=== PATIENT | male | born 1985 | race Caucasian/White ===

== ENCOUNTER 2016-12-03 19:02 | Emergency (ER) | payer OTHER ==
--- NOTE | 2016-12-03 21:02 | ED ---
Upper Extremity HPI - General Chief Complaint: Extremity Injury, Upper Stated Complaint: left shoulder pain Time Seen by Provider: 12/03/16 20:06 Source: patient, RN notes reviewed Mode of arrival: ambulatory Limitations: no limitations - History of Present Illness Initial Comments: 31-year-old male presents emergency Department chief complaint left shoulder pain. Patient states she's had increasing pain last 2 days with no major injury. He states it just feels like he needs a pop and sore. He states when he lifts it above 90 he starts to feel some pinching sensation. Patient's had no prior injuries. Does do large amount lifting with his job. Patient denies a paresthesias. Patient offers no other complaints. - Related Data Previous Rx's Medication Instructions Recorded Hydrocodone/Acetaminophen [[place] 1 tab PO Q6HR PRN #20 tab 12/03/16 5-325] methylPREDNISolone [Medrol Dose 4 mg PO DIRECTED #1 pack 12/03/16 Pack] Allergies Allergy/AdvReac Type Severity Reaction Status Date / Time iodine Allergy Unknown Verified 12/03/16 19:40 Review of Systems ROS Statement: Those systems with pertinent positive or pertinent negative responses have been documented in the HPI. ROS Other: All systems not noted in ROS Statement are negative. Past Medical History Past Medical History: No Reported History History of Any Multi-Drug Resistant Organisms: None Reported Past Surgical History: Tonsillectomy Additional Past Surgical History / Comment(s): vasectomy Past Psychological History: Anxiety, Depression, PTSD Smoking Status: Former smoker Past Alcohol Use History: Occasional Past Drug Use History: None Reported General Exam Limitations: no limitations General appearance: alert, in no apparent distress Head exam: Present: atraumatic, normocephalic, normal inspection Eye exam: Present: normal appearance, PERRL, EOMI. Absent: scleral icterus, conjunctival injection, periorbital swelling Neck exam: Present: normal inspection, full ROM. Absent: tenderness Respiratory exam: Present: normal lung sounds bilaterally. Absent: respiratory distress, wheezes, rales, rhonchi, stridor Cardiovascular Exam: Present: regular rate, normal rhythm, normal heart sounds. 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 There is no acute fracture I received an x-ray. Patient has impingement syndrome. Patient will try a course of steroids and pain medication. Patient will follow on-call orthopedics Dr. Doe. Disposition Clinical Impression: Impingement syndrome of left shoulder Disposition: HOME SELF-CARE Condition: Stable Instructions: Shoulder Pain (ED) Additional Instructions: Please return to the Emergency Department if symptoms worsen or any other concerns. Prescriptions: Hydrocodone/Acetaminophen [[place] 5-325] 1 tab PO Q6HR PRN #20 tab PRN Reason: Pain methylPREDNISolone [Medrol Dose Pack] 4 mg PO DIRECTED #1 pack Referrals: Landon Earl MD [Primary Care Provider] - 1-2 days Mango Doe MD [STAFF PHYSICIAN] - 1-2 days Time of Disposition: 21:31
--- NOTE | 2016-12-03 21:34 | XR ---
PROCEDURE: XR shoulder complete LT DATE AND TIME: 12/03/2016 8:20 PM REFERRING PHYSICIAN: Viktor Sifuentes CLINICAL INDICATION: PHH, Pain TECHNIQUE: Department protocol. COMPARISON: None FINDINGS: There is no fracture or malalignment. The soft tissues are unremarkable. IMPRESSION: NO ACUTE PROCESS.
[2016-12-03 21:54] VITALS: BP 123/77; PULSE 70; RESP 18; TEMP 98.2
== END 2016-12-03 21:54 | disposition home or self-care (01) ==
LOC: EC 19:02
DX: M75.42 Impingement syndrome of left shoulder (principal); Z91.048 Other nonmedicinal substance allergy status; Z87.891 Personal history of nicotine dependence
CPT/HCPCS: 99283

== ENCOUNTER 2018-03-11 18:10 | Emergency (ER) | payer OTHER ==
[2018-03-11 18:29] VITALS: BP 119/84; PULSE 102; RESP 18; TEMP 98.2
[2018-03-11] MEDS ORDERED: LIDOCAINE 1% INJ 10MG/ML (20 ML MDV) SQ ONE (19:28)
--- NOTE | 2018-03-11 19:34 | ED ---
Wound/Laceration HPI - General Chief Complaint: Wound/Laceration Stated Complaint: Hand laceration Time Seen by Provider: 03/11/18 19:12 Source: patient Mode of arrival: ambulatory Limitations: no limitations - History of Present Illness Initial Comments: 32-year-old male who denies past medical history presenting today for chief complaint of right hand laceration. Patient states about 20 minutes prior to arrival he was washing dishes when a glass broke into 2 pieces cutting him over the MTP joint of the fourth digit. Patient states it broke in large pieces he states he does not feel that there is foreign body or piece of glass within the wound. Patient states he immediately rinsed apply pressure and presented for evaluation. Patient states tetanus is updated and last 5 years. Patient denies any numbness, tingling, loss sensation or decreased range of motion. Patient states he is able to fully flex and extend at the MTP DIP and PIP joints of the right fourth digit. Patient denies any injury to any other extremity or fall. Remainder of ROS negative, patient denies any recent fever, chills, shortness of breath, chest pain, back pain, abdominal pain, nausea or vomiting, numbness or tingling, dysuria or hematuria, constipation or diarrhea, headaches or visual changes, or any other complaints. Upon arrival heart rate elevated, remainder of vital signs within normal limits - Related Data Home Medications Medication Instructions Recorded Confirmed Naproxen 500 mg PO BID PRN 11/12/17 11/12/17 Previous Rx's Medication Instructions Recorded Cephalexin [Keflex] 500 mg PO Q12HR 5 Days #10 cap 03/11/18 Allergies Allergy/AdvReac Type Severity Reaction Status Date / Time iodine Allergy Unknown Verified 03/11/18 18:29 shellfish derived [Shellfish] Allergy Unknown Verified 03/11/18 18:29 Review of Systems ROS Statement: Those systems with pertinent positive or pertinent negative responses have been documented in the HPI. ROS Other: All systems not noted in ROS Statement are negative. Past Medical History Past Medical History: No Reported History History of Any Multi-Drug Resistant Organisms: None Reported Past Surgical History: Tonsillectomy Additional Past Surgical History / Comment(s): vasectomy Past Psychological History: Anxiety, Bipolar, Depression, PTSD, Schizophrenia Smoking Status: Former smoker Past Alcohol Use History: Occasional Past Drug Use History: None Reported General Exam - General Exam Comments Initial Comments: General: The patient is awake and alert, in no distress, and does not appear acutely ill. Eye: +3 mm pupils are equal, round and reactive to light, extra-ocular movements are intact. No nystagmus. There is normal conjunctiva bilaterally. No signs of icterus. Cardiovascular: There is a regular rate and rhythm. No murmur, rub or gallop is appreciated. Respiratory: Lungs are clear to auscultation, respirations are non-labored, breath sounds are equal. No wheezes, stridor, rales, or rhonchi. Musculoskeletal: Upon inspection of the right hand there is a V-shaped laceration about 4 cm total in length. There is no exposure of underlying structures including tendon. Normal ROM at the MTP, DIP and PIP joints of the digits of the right hand with strength 5/5. Sensation intact of the right hand. Radial pulses equal bilaterally 2+. Sensation of the digits of the right hand. Capillary refill less than 2 seconds. Neurological: A&O x 3. CN II-XII intact, There are no obvious motor or sensory deficits. Coordination appears grossly intact. Speech is normal. Skin: Skin is warm and dry and no rashes or lesions are noted. Psychiatric: Cooperative, appropriate mood & affect, normal judgment. Limitations: no limitations Right Hand L/R Back: 1 - v shaped 2 - same laceration v shaped Course Vital Signs 03/11/18 18:27 Temperature 98.2 F Pulse Rate 102 H Respiratory 18 Rate Blood Pressure 119/84 O2 Sat by Pulse 96 Oximetry Procedures - Laceration Laceration #1 Consent Obtained: verbal consent Time Out Performed: Yes Indication: laceration Site: hand Size (cm): 4 Description: irregular Depth: simple, single layer Anesthetic Used: lidocaine 1% Anesthesia Technique: local infiltration Amount (mls): 6 Pre-repair: wound explored, irrigated extensively, deep structures intact Type of Sutures: nylon Size of Sutures: 5-0 Number of Sutures: 8 Technique: simple, interrupted Patient Tolerated Procedure: well, no complications Medical Decision Making - Medical Decision Making Tdap is updated per pt. No evidence of FB, tendon injury on exam. Appearing to be superficial involving skin. No muscle testing deficits or decreased ROM on exam to isolated testing of MTP, DIP and PIP joints of the right hand. Laceration repairs after exploration and irrigation. XR (-) for radiopaque FB or fracture. Given hand laceration/mechanism, pt given ppx abx keflex x5 days. Pt has referral for orthopedic evaluation for any noticed limitation in either ROM or strength in days following injury. In addition recommended pcp fu in next 1-2 days. Pt is to return for suture removal in 7-10 days. Sterile bandage applied. Pt educated on signs concernign for infection. Return parameters discussed at length. Pt discharged in stable condition, appearing well. Denied questions at this time. Disposition Clinical Impression: Hand laceration Disposition: HOME SELF-CARE Condition: Good Instructions: Care For Your Stitches (ED), Laceration (ED) Additional Instructions: Please use medication as discussed. Please follow-up with family doctor in the next 2 days. Pleas seek orthopedic evaluation for any limitations in movement or strength. Please return in 7-10 days for suture removal. Please return to emergency room if the symptoms increase or worsen or for any other concerns. Prescriptions: Cephalexin [Keflex] 500 mg PO Q12HR 5 Days #10 cap Is patient prescribed a controlled substance at d/c from ED?: No Referrals: [facility] [Primary Care Provider] - 1-2 days Time of Disposition: 20:43
--- NOTE | 2018-03-11 20:10 | XR ---
PROCEDURE: XR hand complete RT - 3V DATE AND TIME: 03/11/2018 7:37 PM CLINICAL INDICATION: Laceration on fifth digit from glass while washing dishes TECHNIQUE: Department protocol COMPARISON: None FINDINGS: There is no fracture or malalignment. No radiopaque foreign body. Soft tissue swelling note d. IMPRESSION: Soft tissue swelling.
== END 2018-03-11 20:50 | disposition home or self-care (01) ==
LOC: EC 18:10
DX: S61.411A Laceration without foreign body of right hand, initial encounter (principal); Z87.891 Personal history of nicotine dependence; Z91.048 Other nonmedicinal substance allergy status; Z91.013 Allergy to seafood; W25.XXXA Contact with sharp glass, initial encounter; Y93.G1 Activity, food preparation and clean up
CPT/HCPCS: 73130; 99283; 12002; J2001

== ENCOUNTER 2019-11-09 14:36 | Emergency (ER) | payer OTHER ==
[2019-11-09 14:49] VITALS: BP 143/98; PULSE 88; RESP 18
[2019-11-09 14:51] VITALS: TEMP 97.7
--- NOTE | 2019-11-09 14:54 | ED ---
ENT HPI - General Chief complaint: Dental/Oral Stated complaint: Dental Pain Time Seen by Provider: 11/09/19 14:50 Source: patient Mode of arrival: ambulatory Limitations: no limitations - History of Present Illness Initial comments: Patient is a 34-year-old male presenting to emergency Department with a chief complaint abdominal pain. Patient states he sits see a dentist because he recently obtained dental insurance., However he cannot tolerate the pain. Patient states over the weekend he bit on some hard food and developed pain in the bottom right region of this month. Patient states she also has pain around tooth #28 with a mass around it. Patient states it feels hard. Denies any facial swelling, night sweats fever or chills. Denies taking medication to alleviate the symptoms. - Related Data Home Medications Medication Instructions Recorded Confirmed Naproxen 500 mg PO BID PRN 11/12/17 11/12/17 Previous Rx's Medication Instructions Recorded Cephalexin [Keflex] 500 mg PO Q12HR 5 Days #10 cap 03/11/18 Amoxicillin/Potassium Clav 1 tab PO Q12HR #20 tab 11/09/19 [Augmentin 875-125 Tablet] Allergies Allergy/AdvReac Type Severity Reaction Status Date / Time iodine Allergy Unknown Verified 11/09/19 14:48 shellfish derived [Shellfish] Allergy Unknown Verified 11/09/19 14:48 Review of Systems ROS Statement: Those systems with pertinent positive or pertinent negative responses have been documented in the HPI. ROS Other: All systems not noted in ROS Statement are negative. Past Medical History Past Medical History: No Reported History History of Any Multi-Drug Resistant Organisms: None Reported Past Surgical History: Tonsillectomy Additional Past Surgical History / Comment(s): vasectomy Past Psychological History: Anxiety, Bipolar, Depression, PTSD, Schizophrenia Smoking Status: Former smoker Past Alcohol Use History: Daily Past Drug Use History: None Reported General Exam Limitations: no limitations General appearance: alert, in no apparent distress Head exam: Present: atraumatic, normocephalic, normal inspection Eye exam: Present: normal appearance, PERRL, EOMI Pupils: Present: normal accommodation ENT exam: Present: normal exam, mucous membranes moist, TM's normal bilaterally, normal external ear exam. Absent: normal oropharynx (There appears to be a hard mass measuring less than 1 cm in diameter on the inner aspect of her right lower mandible. Right next to tooth #20. This is not an abscess. It is not erythematous.), other (No facial swelling) Neck exam: Present: normal inspection, full ROM. Absent: tenderness, l ymphadenopathy Respiratory exam: Present: normal lung sounds bilaterally. Absent: respiratory distress, wheezes, rales Cardiovascular Exam: Present: regular rate, normal rhythm, normal heart sounds Extremities exam: Present: normal inspection, full ROM. Absent: tenderness Back exam: Present: normal inspection, full ROM. Absent: tenderness Neurological exam: Present: alert, oriented X3 Course Vital Signs 11/09/19 11/09/19 14:47 14:51 Temperature 97.7 F Pulse Rate 88 Respiratory 18 Rate Blood Pressure 143/98 O2 Sat by Pulse 98 Oximetry Medical Decision Making - Medical Decision Making Patient 34-year-old male presenting to the emergency department with a chief complaint of dental pain. On exam patient appears to have a small hard mass on the inner aspect of the right lower jaw. This does not appear to be an abscess. There is no erythema around it. Patient has an appointment with a dentist in the next 2-3 days. Patient will be given Tylenol 3 starter pack and advised to alternate between Tylenol Motrin for pain control. Advised not drive or operate machinery when taken medication. He will be started on Augmentin. Return pa rameters thoroughly discussed with patient was understanding and agreeable. Case discussed with physician. Disposition Clinical Impression: Pain, dental Disposition: HOME SELF-CARE Condition: Stable Instructions (If sedation given, give patient instructions): Toothache (ED) Additional Instructions: Take prescribed medication as directed. Alternate between Tylenol and Motrin for pain control. Follow with a dentist. Return to emergency department if symptoms worsen. Prescriptions: Amoxicillin/Potassium Clav [Augmentin 875-125 Tablet] 1 tab PO Q12HR #20 tab Is patient prescribed a controlled substance at d/c from ED?: No Referrals: [facility]inic [Primary Care Provider] - 1-2 days Time of Disposition: 15:05
[2019-11-09] MEDS ORDERED: AMOXIC-POT CLAV 875-125MG 1 EACH TAB PO STA (14:58)
[2019-11-09] MEDS ORDERED: ACET/COD 300 MG/30 MG STARTER PACK 6 TAB BTL PO STA (14:58)
== END 2019-11-09 15:13 | disposition home or self-care (01) ==
LOC: EC 14:36
DX: K08.89 Other specified disorders of teeth and supporting structures (principal); Z91.013 Allergy to seafood; Z91.048 Other nonmedicinal substance allergy status; Z87.891 Personal history of nicotine dependence
CPT/HCPCS: 99282

== ENCOUNTER 2021-07-26 10:36 | Day surgery (SDC) | payer OTHER ==
[2021-07-25 08:52] VITALS: BMI 32.8
[2021-07-26 11:00] VITALS: RESP 16; TEMP 98.2
[2021-07-26] MEDS ORDERED: LACTATED RINGERS 1,000 ML IV ONE (11:10)
[2021-07-26] MEDS ORDERED: PROPOFOL 10 MG/ML 20 ML VIAL IV ONE (11:47)
--- NOTE | 2021-07-26 11:59 | P.PCN ---
Date of Procedure: 07/26/21 Procedure(s) Performed: BRIEF HISTORY: Patient is a 35-year-old pleasant white male scheduled for an elective colonoscopy as a part of evaluation of intermittent rectal bleeding for the last 6 months duration PROCEDURE PERFORMED: Colonoscopy. PREOPERATIVE DIAGNOSIS: Rectal bleeding. IV sedation per Anesthesia. PROCEDURE: After informed consent was obtained, the patient, was brought into the endoscopy unit. IV sedation was administered by Anesthesia under continuous monitoring. Digital rectal examination was normal. Initially the Olympus CF-160 flexible video colonoscope was then inserted in the rectum, gradually advanced into the cecum without any difficulty. Careful examination was performed as the scope was gradually being withdrawn. Ileocecal valve and the appendiceal orifice were visualized and appeared normal. Prep was excellent. Mucosa of the cecum, ascending colon, transverse colon, descending colon, sigmoid colon, and rectum appeared normal. Retroflexion was performed in the rectum and small internal hemorrhoids were seen. The patient tolerated the procedure well. IMPRESSION: Normal-appearing colon from rectum to cecum with no evidence of colorectal neoplasia. Small internal hemorrhoids. RECOMMENDATIONS: Findings of this examination were discussed with the patient a s well as his family. He was advised to be a high-fiber diet and take fiber supplements a regular basis. Avoid straining and constipation..
[2021-07-26 12:27] VITALS: BP 107/71; PULSE 77
== END 2021-07-26 12:44 | disposition home or self-care (01) ==
LOC: ORWHC2ENDO 10:36
PROVIDERS: ATTEND Internal Medicine Gastroenterology
DX: K64.8 Other hemorrhoids (principal); Z88.8 Allergy status to other drugs, medicaments and biological substances; Z91.013 Allergy to seafood; F43.10 Post-traumatic stress disorder, unspecified; M19.90 Unspecified osteoarthritis, unspecified site; F41.9 Anxiety disorder, unspecified; F31.9 Bipolar disorder, unspecified; Z79.899 Other long term (current) drug therapy
CPT/HCPCS: 45378; J2704

== ENCOUNTER 2023-08-04 10:21 | Emergency (ER) | payer OTHER ==
--- NOTE | 2023-08-04 10:45 | XR ---
Right shoulder. HISTORY: Pain. COMPARISON: None. TECHNIQUE: 3 views of the right shoulder were obtained. FINDINGS: There is no fracture, dislocation, intraosseous, intra-articular soft tissue abnormality. IMPRESSION: No significant abnormality seen.
[2023-08-04 10:55] VITALS: RESP 18
[2023-08-04] MEDS: ORPHENADRINE 30 MG/ML 2 ML VIAL IM STA (11:08)
[2023-08-04] MEDS: KETOROLAC 15 MG/ML 1 ML VIAL IM STA (11:09)
--- NOTE | 2023-08-04 11:17 | ED ---
Extremity Problem HPI - General Chief complaint: Extremity Injury, Upper Stated complaint: R shoulder pain Time Seen by Provider: 08/04/23 10:36 Source: patient, RN notes reviewed Mode of arrival: ambulatory Limitations: no limitations - History of Present Illness Initial comments: This is a 37-year-old male who presents to the emergency department for right shoulder pain. States that he started to develop pain yesterday after mowing the lawn. This morning it got much worse and he has barely been able to move the arm. Denies any new injuries, but states that he did injure that shoulder several years ago. He tried [id number] naproxen and ibuprofen without relief in symptoms. MD Complaint: extremity pain - Related Data Home Medications Medication Instructions Recorded Confirmed Naproxen 500 mg PO BID PRN 11/12/17 07/26/21 ARIPiprazole [Abilify] 10 mg PO HS 07/25/21 07/26/21 Cetirizine HCl [Zyrtec] 10 mg PO DAILY 07/25/21 07/26/21 Fluticasone Nasal [place] [Flonase 1 spray EA NOSTRIL DAILY 07/25/21 07/26/21 Nasal [place]] Venlafaxine HCl ER [Effexor Xr] 37.5 mg PO DAILY 07/25/21 07/26/21 methocarbamoL [Robaxin-750] 750 mg PO DIRECTED PRN 07/25/21 07/26/21 Previous Rx's Medication Instructions Recorded Ketorolac [Toradol] 10 mg PO Q6HR PRN #15 tab 08/04/23 methocarbamoL [Robaxin-750] 1,500 mg PO TID PRN #30 tab 08/04/23 Allergies Allergy/AdvReac Type Severity Reaction Status Date / Time iodine Allergy Unknown Verified 08/04/23 10:27 shellfish derived [Shellfish] Allergy Unknown Verified 08/04/23 10:27 Review of Systems ROS Statement: Those systems with pertinent positive or pertinent negative responses have been documented in the HPI. ROS Other: All systems not noted in ROS Statement are negative. Past Medical History Past Medical History: Osteoarthritis (OA) Additional Past Medical History / Comment(s): migraines, blood in stools, History of Any Multi-Drug Resistant Organisms: None Reported Past Surgical History: Tonsillectomy Additional Past Surgical History / Comment(s): vasectomy Past Anesthesia/Blood Transfusion Reactions: No Reported Reaction Past Psychological History: Anxiety, Bipolar, Depression, PTSD Smoking Status: Former smoker - Past Family History Mother Family Medical History: No Reported History General Exam Limitations: no limitations General appearance: alert, in no apparent distress Head exam: Present: atraumatic, normocephalic, normal inspection Respiratory exam: Present: normal lung sounds bilaterally. Absent: respiratory distress, wheezes, rales, rhonchi, stridor Cardiovascular Exam: Present: regular rate, normal rhythm, normal heart sounds. Absent: systolic murmur, diastolic murmur, rubs, gallop, clicks Extremities exam: Present: other (Tenderness to palpation over the right shoulder. No deformities. Range of motion limited by pain. He is able to touch his left shoulder with his right hand. 2+ radial pulses.) Neurological exam: Present: alert, oriented X3, CN II-XII intact Psychiatric exam: Present: normal affect, normal mood Skin exam: Present: warm, dry, intact, normal color. Absent: rash Course Vital Signs 08/04/23 08/04/23 10:24 12:11 Temperature 98.1 F 98.4 F Pulse Rate 69 70 Respiratory 18 18 Rate Blood Pressure 137/88 122/86 O2 Sat by Pulse 98 98 Oximetry Medical Decision Making - Medical Decision Making This is a 37 year old male who presents to the emergency department for right shoulder pain. Was pt. sent in by a medical professional or institution? @ -No Did you speak to anyone other than the patient for history? @ -No Did you review nursing and triage notes? @ -Yes, and I agree, it is accurate with regards to the patient's symptoms. Were old charts reviewed? @ -No Differential Diagnosis? @ -Differential Musculoskeletal: Muscular strain, contusion, ligament sprain, fracture, arthritis, septic arthritis, bursitis, cellulitis, muscle spasm, nerve compression, DVT, arterial occlusion, herpes zoster, electrolyte abnormality, tumor.... This is not meant to be in all inclusive list EKG interpreted by me (3pts min.)? @ -Not obtained X-rays interpreted by me (1pt min.)? @ -X-ray of the right shoulder obtained. My interpretation identifies no acute fractures. CT interpreted by me (1pt min.)? @ -Not obtained U/S interpreted by me (1pt. min.)? @ -Not obtained What testing was considered but not performed? (CT, X-rays, U/S, labs)? Why? @ -None What meds were considered but not given? Why? @ -None Did you discuss the management of the patient with other professionals? @ -No Did you reconcile home meds? @ -No Was smoking cessation discussed for >3mins.? @ -No Was critical care preformed (if so, how long)? @ -No Were there social determinants of health that impacted care today? How? (Homelessness, low income, unemployed, alcoholism, drug addiction, transportation, low edu. Level, literacy, decrease access to med. care, fdc, rehab)? @ -No Was there de-escalation of care discussed even if they declined? (Discuss DNR or withdrawal of care, Hospice)? @ -No What co-morbidities impacted this encounter? (DM, HTN, Smoking, COPD, CAD, Cancer, CVA, Hep., AIDS, mental health diagnosis, sleep apnea, morbid obesity)? @ -None Was patient admitted / discharged? @ -Discharged. X-ray of the right shoulder obtained revealing no acute process. Symptoms likely related to a muscular strain. Pain was managed in the emergency department. Prescription for Toradol and Robaxin provided with dosing instructions reviewed. Advised follow-up with his primary care provider for reevaluation. Undiagnosed new problem with uncertain prognosis? @ -None Drug Therapy requiring intensive monitoring for toxicity (Heparin, Nitro, Insulin, Cardizem)? @ -None Were any procedures done? @ -None Diagnosis/symptom? @ -Right shoulder pain Acute, or Chronic, or Acute on Chronic? @ -Acute Uncomplicated (without systemic symptoms) or Complicated (systemic symptoms)? @ -Uncomplicated Side effects of treatment? @ -None Exacerbation, Progression, or Severe Exacerbation] @ -Not applicable Poses a threat to life or bodily function? @ -No Return precautions reviewed in depth, the patient is instructed to return to the emergency department with any new, worsening, or concerning symptoms. Patient verbalized understanding. This case was discussed in detail with the attending ED physician, Dr. Alonso. Presentation, findings, and treatment plan discussed in detail as well. - Radiology Data Radiology results: report reviewed, image reviewed Disposition Clinical Impression: Right shoulder pain Disposition: HOME SELF-CARE Instructions (If sedation given, give patient instructions): Shoulder Pain (ED) Additional Instructions: Return to the emergency department with any new, worsening, or concerning symptoms. Take the Toradol with Tylenol as needed for pain relief. If you choose to take the Toradol, do not take any other anti-inflammatories such as ibuprofen, take one or the other. Take the Robaxin as 1 to 2 tablets up to 3-4 times daily. Be aware that this may make you drowsy. Follow up with your primary care provider in 1-2 days. Prescriptions: methocarbamoL [Robaxin-750] 1,500 mg PO TID PRN #30 tab PRN Reason: Pain Ketorolac [Toradol] 10 mg PO Q6HR PRN #15 tab PRN Reason: Pain Is patient prescribed a controlled substance at d/c from ED?: No Referrals: [facility],Clinic [Primary Care Provider] - 1-2 days Time of Disposition: 11:28
[2023-08-04] MEDS: DEXAMETHASONE SOD PHOSPHATE 10 MG/ML 1 ML VIAL IM STA (11:46)
[2023-08-04] MEDS: MORPHINE SULFATE 4 MG/ML SYRINGE IM STA (11:46)
[2023-08-04] MEDS: ACET/COD 300 MG/30 MG STARTER PACK 6 TAB BTL PO STA (11:49)
[2023-08-04 12:35] VITALS: BP 122/86; PULSE 70; TEMP 98.4
== END 2023-08-04 12:12 | disposition home or self-care (01) ==
LOC: EC 10:21
DX: M25.511 Pain in right shoulder (principal); Z91.041 Radiographic dye allergy status; Z91.013 Allergy to seafood; Z87.891 Personal history of nicotine dependence
CPT/HCPCS: 99283; 96372; 73030; J2270; J1100; J2360; J1885

== ENCOUNTER 2023-12-03 00:33 | Emergency (ER) | payer OTHER ==
[2023-12-03 00:39] VITALS: RESP 18; TEMP 97.5
--- NOTE | 2023-12-03 01:01 | ED ---
Back Pain HPI - General Chief Complaint: Back Pain/Injury Stated Complaint: Back Pain Time Seen by Provider: 12/03/23 00:48 Source: patient Limitations: no limitations - History of Present Illness Initial Comments: 38-year-old male presenting with chief complaint of back pain. Patient is having lower back pain that is worse on the left. He has history of lower back pain and states that this feels somewhat similar. Started abruptly this evening. No injury or trauma. No loss of bowel or bladder control or saddle paresthesia. No radiation down the leg. No abdominal pain. He is nauseous from the pain. - Related Data Home Medications Medication Instructions Recorded Confirmed Naproxen 500 mg PO BID PRN 11/12/17 07/26/21 ARIPiprazole [Abilify] 10 mg PO HS 07/25/21 07/26/21 Cetirizine HCl [Zyrtec] 10 mg PO DAILY 07/25/21 07/26/21 Fluticasone Nasal [place] [Flonase 1 spray EA NOSTRIL DAILY 07/25/21 07/26/21 Nasal [place]] Venlafaxine HCl ER [Effexor Xr] 37.5 mg PO DAILY 07/25/21 07/26/21 methocarbamoL [Robaxin-750] 750 mg PO DIRECTED PRN 07/25/21 07/26/21 Previous Rx's Medication Instructions Recorded Ketorolac [Toradol] 10 mg PO Q6HR PRN #15 tab 08/04/23 methocarbamoL [Robaxin-750] 1,500 mg PO TID PRN #30 tab 08/04/23 Cyclobenzaprine [Flexeril] 10 mg PO TID PRN #15 tab 12/03/23 Allergies Allergy/AdvReac Type Severity Reaction Status Date / Time iodine Allergy Unknown Verified 08/04/23 10:27 shellfish derived [Shellfish] Allergy Unknown Verified 08/04/23 10:27 Review of Systems ROS Statement: Those systems with pertinent positive or pertinent negative responses have been documented in the HPI. ROS Other: All systems not noted in ROS Statement are negative. Past Medical History Past Medical History: Osteoarthritis (OA) Additional Past Medical History / Comment(s): migraines, blood in stools, History of Any Multi-Drug Resistant Organisms: None Reported Past Surgical History: Tonsillectomy Additional Past Surgical History / Comment(s): vasectomy Past Anesthesia/Blood Transfusion Reactions: No Reported Reaction Past Psychological History: Anxiety, Bipolar, Depression, PTSD Smoking Status: Former smoker Past Alcohol Use History: Occasional Past Drug Use History: None Reported - Past Family History Mother Family Medical History: No Reported History General Exam Limitations: no limitations General appearance: alert, other (In pain) Head exam: Present: atraumatic, normocephalic, normal inspection Eye exam: Present: normal appearance, EOMI Neck exam: Present: normal inspection. Absent: meningismus Respiratory exam: Absent: respiratory distress Cardiovascular Exam: Present: regular rate Extremities exam: Present: normal inspection Neurological exam: Present: alert, oriented X3 Psychiatric exam: Present: normal affect, normal mood Skin exam: Present: normal color Course Vital Signs 12/03/23 00:34 Temperature 97.5 F L Pulse Rate 95 Respiratory 18 Rate Blood Pressure 124/83 O2 Sat by Pulse 97 Oximetry Medical Decision Making - Medical Decision Making Was pt. sent in by a medical professional or institution (, PA, BUSINESS LIAISON OFFICER, urgent care, hospital, or residential...) When possible be specific @ -No Did you speak to anyone other than the patient for history (EMS, parent, family, police, friend...)? What history was obtained from this source @ -No Did you review nursing and triage notes (agree or disagree)? Why? @ -I reviewed and agree with nursing and triage notes Were old charts reviewed (outside hosp., previous admission, EMS record, old EKG, old radiological studies, urgent care reports/EKG's, residential records)? Report findings @ -No old charts were reviewed Differential Diagnosis (chest pain, altered mental status, abdominal pain women, abdominal pain men, vaginal bleeding, weakness, fever, dyspnea, syncope, headache, dizziness, GI bleed, back pain, seizure, CVA, palpatations, mental health, musculoskeletal)? @ - MDM Differential Back Pain: Strain, zoster, cauda equina syndrome, epidural abscess, vertebral osteomyelitis, discitis, fracture, subluxation, disc herniation, DJD, spinal stenosis, dissection, AAA, pancreatitis, peptic ulcer disease, pyelonephritis, kidney stone this is not meant to be an all-inclusive list. EKG interpreted by me (3pts min.). @ -As above X-rays interpreted by me (1pt min.). @ -None done CT interpreted by me (1pt min.). @ -None done U/S interpreted by me (1pt. min.). @ -None done What testing was considered but not performed or refused? (CT, X-rays, U/S, labs)? Why? @ -None What meds were considered but not given or refused? Why? @ -None Did you discuss the management of the patient with other professionals (professionals i.e. DrRachana, PA, BUSINESS LIAISON OFFICER, lab, RT, psych nurse, social media job titles, pattern cutter, teacher, air crew officer, cyanide case hardener)? Give summary @ -No Was smoking cessation discussed for >3mins.? @ -No Was critical care preformed (if so, how long)? @ -No Were there social determinants of health that impacted care today? How? (Homelessness, low income, unemployed, alcoholism, drug addiction, transportation, low edu. Level, literacy, decrease access to med. care, custodial, rehab)? @ -No Was there de-escalation of care discussed even if they declined (Discuss DNR or withdrawal of care, Hospice)? DNR status @ -No What co-morbidities impacted this encounter? (DM, HTN, Smoking, COPD, CAD, Cancer, CVA, ARF, Chemo, Hep., AIDS, mental health diagnosis, sleep apnea, morbid obesity)? @ -None Was patient admitted / discharged? Hospital course, mention meds given and route, prescriptions, significant lab abnormalities, going to OR and other pertinent info. @ -38-year-old male presenting with chief complaint of back pain. History of back pain. No red flag symptoms. He is given Toradol, Decadron, Norflex, lidocaine patch. On reassessment he is resting comfortably in the bed showing no acute signs of distress. Ready for discharge home. Follow-up with PCP. Report back to ER with any new or worsening symptoms. Discussed return parameters and answered all questions. Patient conveyed verbal understanding and agreed to the plan. My attending is Dr. Muñiz Undiagnosed new problem with uncertain prognosis? @ -No Drug Therapy requiring intensive monitoring for toxicity (Heparin, Nitro, Insulin, Cardizem)? @ -No Were any procedures done? @ -No Diagnosis/symptom? @ -Mechanical back pain Acute, or Chronic, or Acute on Chronic? @ -Acute Uncomplicated (without systemic symptoms) or Complicated (systemic symptoms)? @ -Uncomplicated Side effects of treatment? @ -No Exacerbation, Progression, or Severe Exacerbation? @ -No Poses a threat to life or bodily function? How? (Chest pain, [place], [place], pneumonia, PE, COPD, DKA, ARF, appy, cholecystitis, CVA, Diverticulitis, Homicidal, Suicidal, threat to staff... and all critical care pts) @ -Unlikely Disposition Clinical Impression: Mechanical back pain Disposition: HOME SELF-CARE Condition: Good Instructions (If sedation given, give patient instructions): Acute Low Back Pain (ED) Additional Instructions: Follow-up with PCP. Report back to ER with any new or worsening symptoms. Do not take cyclobenzaprine before driving or operating heavy machinery as it may cause drowsiness Prescriptions: Cyclobenzaprine [Flexeril] 10 mg PO TID PRN #15 tab PRN Reason: Spasms Is patient prescribed a controlled substance at d/c from ED?: No Referrals: [facility] [Primary Care Provider] - 1-2 days Time of Disposition: 01:47
[2023-12-03] MEDS: ORPHENADRINE 30 MG/ML 2 ML VIAL IM STA (01:15)
[2023-12-03] MEDS: DEXAMETHASONE SOD PHOSPHATE 10 MG/ML 1 ML VIAL IM STA (01:16)
[2023-12-03] MEDS: LIDOCAINE 4% PATCH TOPICAL ONE (01:16)
[2023-12-03] MEDS: KETOROLAC 15 MG/ML 1 ML VIAL IM STA (01:16)
[2023-12-03 01:57] VITALS: BP 135/89; PULSE 86
== END 2023-12-03 01:59 | disposition home or self-care (01) ==
LOC: EC 00:33
CPT/HCPCS: 96372; 99283

== ENCOUNTER 2023-12-05 02:14 | Emergency (ER) | payer OTHER ==
[2023-12-05 02:21] VITALS: TEMP 99
--- NOTE | 2023-12-05 02:30 | ED ---
Back Pain HPI - General Source: patient Limitations: no limitations <Myah Vazquez - Last Filed: 12/05/23 04:25> <Reinaldo Alonso - Last Filed: 12/05/23 07:51> - General Chief Complaint: Back Pain/Injury Stated Complaint: back pain Time Seen by Provider: 12/05/23 02:20 - History of Present Illness Initial Comments: 38-year-old male presenting with chief complaint of back pain. Pain is located primarily in the left lower back. Occasionally radiates down the leg. No loss of bowel or bladder control or saddle paresthesia. He was here on the first and was given a steroid, muscle relaxer, and anti-inflammatory. Pain is returning, [facility]. No fevers or chills. No dysuria or hematuria. No nausea or vomiting. No abdominal pain. (Myah Vazquez) - Related Data Home Medications Medication Instructions Recorded Confirmed Naproxen 500 mg PO BID PRN 11/12/17 07/26/21 ARIPiprazole [Abilify] 10 mg PO HS 07/25/21 07/26/21 Cetirizine HCl [Zyrtec] 10 mg PO DAILY 07/25/21 07/26/21 Fluticasone Nasal [place] [Flonase 1 spray EA NOSTRIL DAILY 07/25/21 07/26/21 Nasal [place]] Venlafaxine HCl ER [Effexor Xr] 37.5 mg PO DAILY 07/25/21 07/26/21 methocarbamoL [Robaxin-750] 750 mg PO DIRECTED PRN 07/25/21 07/26/21 Previous Rx's Medication Instructions Recorded Ketorolac [Toradol] 10 mg PO Q6HR PRN #15 tab 08/04/23 methocarbamoL [Robaxin-750] 1,500 mg PO TID PRN #30 tab 08/04/23 Cyclobenzaprine [Flexeril] 10 mg PO TID PRN #15 tab 12/03/23 Ketorolac [Toradol] 10 mg PO Q6HR PRN #10 tab 12/05/23 Tamsulosin [Flomax] 0.4 mg PO DAILY #10 cap 12/05/23 tiZANidine [Zanaflex] 2 mg PO Q6HR PRN #12 tab 12/05/23 Allergies Allergy/AdvReac Type Severity Reaction Status Date / Time iodine Allergy Unknown Verified 12/05/23 02:16 shellfish derived [Shellfish] Allergy Unknown Verified 12/05/23 02:16 Review of Systems ROS Other: All systems not noted in ROS Statement are negative. <Myah Vazquez - Last Filed: 12/05/23 04:25> ROS Other: All systems not noted in ROS Statement are negative. <Reinlado Alonso - Last Filed: 12/05/23 07:51> ROS Statement: Those systems with pertinent positive or pertinent negative responses have been documented in the HPI. Past Medical History Past Medical History: Osteoarthritis (OA) Additional Past Medical History / Comment(s): migraines, blood in stools, History of Any Multi-Drug Resistant Organisms: None Reported Past Surgical History: Tonsillectomy Additional Past Surgical History / Comment(s): vasectomy Past Anesthesia/Blood Transfusion Reactions: No Reported Reaction Past Psychological History: Anxiety, Bipolar, Depression, PTSD Smoking Status: Former smoker Past Alcohol Use History: Occasional Past Drug Use History: None Reported - Past Family History Mother Family Medical History: No Reported History <Myah Vazquez - Last Filed: 12/05/23 04:25> General Exam Limitations: no limitations General appearance: alert, in no apparent distress Head exam: Present: atraumatic, normocephalic, normal inspection Eye exam: Present: normal appearance, EOMI Neck exam: Present: normal inspection. Absent: meningismus Respiratory exam: Absent: respiratory distress Cardiovascular Exam: Present: regular rate Extremities exam: Present: normal inspection Neurological exam: Present: alert, oriented X3 Psychiatric exam: Present: normal affect, normal mood Skin exam: Present: warm, dry <Myah Vazquez - Last Filed: 12/05/23 04:25> Course Vital Signs 12/05/23 02:16 Temperature 99.0 F Pulse Rate 92 Respiratory 21 Rate Blood Pressure 128/89 O2 Sat by Pulse 97 Oximetry Medical Decision Making - Lab Data Result diagrams: 12/05/23 05:58 12/05/23 05:58 <Reinaldo Alonso - Last Filed: 12/05/23 07:51> - Medical Decision Making Was patient admitted / discharged? Hospital course, mention meds given and route, prescriptions, significant lab abnormalities, going to OR and other pertinent info. @ -Patient was signed out to me at [address] Muñiz. CT result was interpreted by myself. CT results shows a stone in the proximal left ureter stone measures about 5 mm Undiagnosed new problem with uncertain prognosis? @ -No Drug Therapy requiring intensive monitoring for toxicity (Heparin, Nitro, Insulin, Cardizem)? @ -No Were any procedures done? @ -No Diagnosis/symptom? @ -Kidney stone Acute, or Chronic, or Acute on Chronic? @ -Acute Uncomplicated (without systemic symptoms) or Complicated (systemic symptoms)? @ -Complicated Side effects of treatment? @ -No Exacerbation, Progression, or Severe Exacerbation? @ -No Poses a threat to life or bodily function? How? (Chest pain, [place], [place], pneumonia, PE, COPD, DKA, ARF, appy, cholecystitis, CVA, Diverticulitis, Homicidal, Suicidal, threat to staff... and all critical care pts) @ -No (Reinaldo Alonso) - Lab Data Lab Results 12/05/23 12/05/23 12/05/23 Range/Units 04:34 05:58 05:58 WBC 9.9 (3.8-10.6) k/uL RBC 4.56 (4.30-5.90) m/uL Hgb 13.9 (13.0-17.5) gm/dL Hct 40.6 (39.0-53.0) % MCV 88.9 (80.0-100.0) fL MCH 30.4 (25.0-35.0) pg MCHC 34.2 (31.0-37.0) g/dL RDW 12.9 (11.5-15.5) % Plt Count 230 (150-450) k/uL MPV 7.4 Neutrophils % 84 % Lymphocytes % 10 % Monocytes % 4 % Eosinophils % 1 % Basophils % 0 % Neutrophils # 8.4 H (1.3-7.7) k/uL Lymphocytes # 1.0 (1.0-4.8) k/uL Monocytes # 0.4 (0-1.0) k/uL Eosinophils # 0.1 (0-0.7) k/uL Basophils # 0.0 (0-0.2) k/uL Sodium 137 (137-145) mmol/L Potassium 4.8 (3.5-5.1) mmol/L Chloride 104 (98-107) mmol/L Carbon Dioxide 28 (22-30) mmol/L Anion Gap 5 mmol/L BUN 20 (9-20) mg/dL Creatinine 1.29 H (0.66-1.25) mg/dL Est GFR (CKD-EPI)AfAm 80 (>60 ml/min/1.73 sqM) Est GFR (CKD-EPI)NonAf 70 (>60 ml/min/1.73 sqM) Glucose 121 H (74-99) mg/dL Calcium 9.1 (8.4-10.2) mg/dL Total Bilirubin 0.8 (0.2-1.3) mg/dL AST 26 (17-59) U/L ALT 32 (4-49) U/L Alkaline Phosphatase 76 (38-126) U/L Total Protein 6.3 (6.3-8.2) g/dL Albumin 3.9 (3.5-5.0) g/dL Urine Color Light Yellow Urine Appearance Clear (Clear) Urine pH 6.5 (5.0-8.0) Ur Specific [place] 1.024 (1.001-1.035) Urine Protein Negative (Negative) Urine Glucose (UA) Negative (Negative) Urine Ketones Trace H (Negative) Urine Blood Moderate H (Negative) Urine Nitrite Negative (Negative) Urine Bilirubin Negative (Negative) Urine Urobilinogen <2.0 (<2.0) mg/dL Ur Leukocyte Esterase Negative (Negative) Urine RBC 10 H (0-5) /hpf Urine WBC 2 (0-5) /hpf Urine WBC Clumps Rare H (None) /hpf Urine Mucus Rare H (None) /hpf Urine Yeast (Budding) Rare H (None) /hpf Disposition Is patient prescribed a controlled substance at d/c from ED?: No <Myah Vazquez - Last Filed: 12/05/23 04:25> Time of Disposition: 07:47 <Reinaldo Alonso - Last Filed: 12/05/23 07:51> Clinical Impression: Kidney stone Disposition: HOME SELF-CARE Condition: Good Additional Instructions: Follow-up with PCP. Report back to ER with any new or worsening symptoms. Prescriptions: Tamsulosin [Flomax] 0.4 mg PO DAILY #10 cap Ketorolac [Toradol] 10 mg PO Q6HR PRN #10 tab PRN Reason: Pain tiZANidine [Zanaflex] 2 mg PO Q6HR PRN #12 tab PRN Reason: Spasms Referrals: Paul Abbasi MD [STAFF PHYSICIAN] - 1-2 days
[2023-12-05] MEDS: LIDOCAINE 4% PATCH TOPICAL ONE (02:58)
[2023-12-05] MEDS: HYDROmorphone 1 MG/ML 1 ML SYRINGE IM STA (02:59)
[2023-12-05] MEDS: KETOROLAC 15 MG/ML 1 ML VIAL IM STA (02:59)
[2023-12-05] MEDS: DEXAMETHASONE SOD PHOSPHATE 10 MG/ML 1 ML VIAL IM STA (02:59)
--- NOTE | 2023-12-05 04:17 | XR ---
EXAM: XR Lumbosacral Spine, 2 or 3 Views CLINICAL HISTORY: ITS.REASON XR Reason: pain TECHNIQUE: Frontal and lateral views of the lumbar spine and sacrum. COMPARISON: No relevant prior studies available. FINDINGS: Vertebrae: No acute fracture. Dextroscoliosis. Disc spaces: Mild disc height loss L5-S1. Soft tissues: Unremarkable. IMPRESSION: No acute findings.
[2023-12-05 05:19] LABS: Appearance,Urine Clear (Clear); Bilirubin,Urine Negative (Negative); Blood,Urine Moderate (Negative); Budding Yeast,Urine Rare /hpf; Color,Urine Light Yellow; Glucose,Urine (UA) Negative (Negative); Ketones,Urine Trace (Negative); Leukocyte Esterase,Urine Negative (Negative); Mucus,Urine Rare /hpf; Nitrite,Urine Negative (Negative); PH, Urine 6.5 (5.0-8.0); Protein,Urine Negative (Negative); RBC,Urine 10 /hpf (0-5); Specific Gravity,Urine 1.024 (1.001-1.035); Urobilinogen,Urine <2.0 mg/dL (<2.0); WBC,Urine 2 /hpf (0-5)
[2023-12-05 06:16] LABS: Basophils % (A) 0 %; Eosinophils # (A) 0.1 k/uL (0-0.7); Eosinophils % (A) 1 %; HCT 40.6 % (39.0-53.0); HGB 13.9 gm/dL (13.0-17.5); Lymphocytes % (A) 10 %; MCH 30.4 pg (25.0-35.0); MCHC 34.2 g/dL (31.0-37.0); MCV 88.9 fL (80.0-100.0); Mean Platelet Volume 7.4; Monocytes # (A) 0.4 k/uL (0-1.0); Monocytes % (A) 4 %; Neutrophils # (A) 8.4 k/uL (1.3-7.7); Neutrophils % (A) 84 %; Platelet Count 230 k/uL (150-450); RBC 4.56 m/uL (4.30-5.90); RDW 12.9 % (11.5-15.5); WBC 9.9 k/uL (3.8-10.6)
[2023-12-05 06:37] LABS: ALT 32 U/L (4-49); AST 26 U/L (17-59); African American GFR (CKD) 80 (>60 ml/min/1.73 sqM); Albumin 3.9 g/dL (3.5-5.0); Alkaline Phosphatase 76 U/L (38-126); Anion Gap 5 mmol/L; Blood Urea Nitrogen 20 mg/dL (9-20); Calcium 9.1 mg/dL (8.4-10.2); Carbon Dioxide 28 mmol/L (22-30); Chloride 104 mmol/L (98-107); Glucose 121 mg/dL (74-99); Non-African American GFR(CKD) 70 (>60 ml/min/1.73 sqM); Potassium 4.8 mmol/L (3.5-5.1); Sodium 137 mmol/L (137-145); Total Bilirubin 0.8 mg/dL (0.2-1.3); Total Protein 6.3 g/dL (6.3-8.2)
[2023-12-05] MEDS: SODIUM CHLORIDE 0.9% 1,000 ML IV ONE (07:04)
--- NOTE | 2023-12-05 07:36 | CT ---
EXAMINATION TYPE: CT abdomen pelvis wo con DATE OF EXAM: 12/05/2023 COMPARISON: None HISTORY: pt reports that he was here Santy night left lower back pain, was given steriod, muscle rel axer, and pain medication. pt reports that he has not had significant relief from the discomfort. [facility], but has not been able to get an appointment till next week. CT DLP: 940.5 mGycm Examination of the solid and hollow viscera is limited given the lack of contrast. FINDINGS: LUNG BASES: No evidence for nodule. No evidence for infiltrate. LIVER/GB: The gallbladder is unremarkable. No space-occupying hepatic lesion. PANCREAS: No pancreatic mass identified. No inflammatory process seen. SPLEEN: No evidence for splenomegaly. No intrasplenic lesions seen. ADRENALS: No adrenal nodules identified. No evidence for thickening. KIDNEYS: No evidence for renal mass. 5 mm proximal left ureteral calculus at the approximate L3-4 lev el resulting in mild left-sided hydronephrosis. Additional 2.5 mm nonobstructing calculus mid pole le ft kidney. Minimal left perinephric stranding. The right kidney is unremarkable. BOWEL: Appendix has a normal appearance. No evidence of bowel obstruction. No inflammatory process. Lymph nodes: No evidence for adenopathy greater than 1 cm. Abdominal aorta: Atheromatous changes seen. No evidence for aneurysm. Genital organs: No significant abnormality. Other: No significant abnormality. IMPRESSION: 5 mm proximal left ureteral calculus at the approximate L3-4 level resulting in mild left-sided hydro nephrosis. [facility], , 12/05/2023 7:34 AM
[2023-12-05 07:56] VITALS: BP 113/74; PULSE 90; RESP 18
== END 2023-12-05 07:55 | disposition home or self-care (01) ==
LOC: EC 02:14
CPT/HCPCS: 36415; 72100; 74176; 80053; 81001; 85025; 96360; 96372; 99284

== ENCOUNTER → 2024-01-29 | Outpatient (CLI) | payer OTHER ==
--- NOTE | 2024-01-30 08:31 | US ---
EXAMINATION TYPE: US kidneys/renal and bladder DATE OF EXAM: 01/29/2024 COMPARISON: NONE CLINICAL INDICATION: Male, 38 years old with history of N20.0 CALCULUS KIDNEY; Hx of stones. TECHNIQUE: Grayscale imaging of the bilateral kidneys and urinary bladder: FINDINGS: EXAM MEASUREMENTS: Right Kidney: 12.1 x 5.3 x 5.2 cm Left Kidney: 12.3 x 5.6 x 5.5 cm Right Kidney: No hydronephrosis or masses seen Left Kidney: No hydronephrosis or masses seen Bladder: wnl Bilateral Jets seen: Yes There is no evidence for hydronephrosis at this point in time. No nephrolithiasis is seen. No flakita s are identified. The urinary bladder is anechoic. IMPRESSION: No discrete abnormalities seen. [facility], , 01/30/2024 8:28 AM
== END | disposition home or self-care (01) ==
LOC: RADUSWWP 01-20 16:12
PROVIDERS: ATTEND Family Medicine
DX: N20.0 Calculus of kidney (principal); Z87.442 Personal history of urinary calculi
CPT/HCPCS: 76770

== ENCOUNTER 2024-06-08 11:21 | Emergency (ER) | payer OTHER ==
[2024-06-08 11:29] VITALS: TEMP 97.6
--- NOTE | 2024-06-08 11:40 | ED ---
Back Pain HPI - General Chief Complaint: Back Pain/Injury Stated Complaint: Back Pain, Vomiting Time Seen by Provider: 06/08/24 11:31 Source: patient, RN notes reviewed Mode of arrival: ambulatory Limitations: no limitations - History of Present Illness Initial Comments: This is a 38-year-old male who presents to the emergency department for back pain. Patient reports left mid to lower back pain starting last night. He has some radiation of pain into the abdomen and associated nausea and vomiting. States that it feels like another kidney stone. He had his first kidney stone in December of last year and was able to pass it on his own. MD Complaint: back pain - Related Data Previous Rx's Medication Instructions Recorded HYDROcodone/APAP 5-325MG [Treichlers 1 tab PO Q6HR PRN 3 Days #12 tab 06/08/24 5-325] Ketorolac [Toradol] 10 mg PO Q6HR PRN #15 tab 06/08/24 Ondansetron Odt [Zofran Odt] 4 mg PO Q8HR PRN #15 tab 06/08/24 Tamsulosin [Flomax] 0.4 mg PO DAILY 5 Days #5 cap 06/08/24 Allergies Allergy/AdvReac Type Severity Reaction Status Date / Time iodine Allergy Unknown Verified 06/08/24 12:49 shellfish derived [Shellfish] Allergy Unknown Verified 06/08/24 12:49 Review of Systems ROS Statement: Those systems with pertinent positive or pertinent negative responses have been documented in the HPI. ROS Other: All systems not noted in ROS Statement are negative. Past Medical History Past Medical History: Osteoarthritis (OA) Additional Past Medical History / Comment(s): migraines, blood in stools, kidney stones, History of Any Multi-Drug Resistant Organisms: None Reported Past Surgical History: Tonsillectomy Additional Past Surgical History / Comment(s): vasectomy Past Anesthesia/Blood Transfusion Reactions: No Reported Reaction Past Psychological History: Anxiety, Bipolar, Depression, PTSD Smoking Status: Former smoker Past Alcohol Use History: Occasional Past Drug Use History: None Reported - Past Family History Mother Family Medical History: No Reported History General Exam Limitations: no limitations General appearance: alert, in distress Head exam: Present: atraumatic, normocephalic, normal inspection Respiratory exam: Present: normal lung sounds bilaterally. Absent: respiratory distress, wheezes, rales, rhonchi, stridor Cardiovascular Exam: Present: regular rate, normal rhythm GI/Abdominal exam: Present: soft, tenderness (LLQ), normal bowel sounds. Absent: distended Back exam: Present: CVA tenderness (L). Absent: CVA tenderness (R) Neurological exam: Present: alert, oriented X3, CN II-XII intact Psychiatric exam: Present: normal affect, normal mood Skin exam: Present: warm, dry, intact, normal color. Absent: rash Course Vital Signs 06/08/24 06/08/24 06/08/24 11:26 11:29 13:07 Temperature 97.6 F Pulse Rate 83 88 62 Respiratory 18 20 20 Rate Blood Pressure 129/88 120/88 131/79 O2 Sat by Pulse 99 98 100 Oximetry Medical Decision Making - Medical Decision Making This is a 38 year old male who presents to the emergency department for abdominal pain and back pain. Was pt. sent in by a medical professional or institution? @ -No Did you speak to anyone other than the patient for history? @ -No Did you review nursing and triage notes? @ -Yes, and I agree, it is accurate with regards to the patient's symptoms. Were old charts reviewed? @ -No Differential Diagnosis? @ -Differential Abdominal Pain Men: Appendicitis, cholecystitis, diverticulosis, ischemic bowel, pancreatitis, hepatitis, UTI, gastroenteritis, AAA, incarcerated hernia, bowel obstruction, constipation, inflammatory bowel, hepatitis, peptic ulcer disease, splenic infarction, perforated viscus, testicular torsion, this is not meant to be an all-inclusive list EKG interpreted by me (3pts min.)? @ -Not obtained X-rays interpreted by me (1pt min.)? @ -Not obtained CT interpreted by me (1pt min.)? @ -CT scan of the abdomen and pelvis obtained. My interpretation identifies a left ureteral calculus. U/S interpreted by me (1pt. min.)? @ -Not obtained What testing was considered but not performed? (CT, X-rays, U/S, labs)? Why? @ -None What meds were considered but not given? Why? @ -None Did you discuss the management of the patient with other professionals? @ -No Did you reconcile home meds? @ -No Was smoking cessation discussed for >3mins.? @ -No Was critical care preformed (if so, how long)? @ -No Were there social determinants of health that impacted care today? How? (Homelessness, low income, unemployed, alcoholism, drug addiction, transportation, low edu. Level, literacy, decrease access to med. care, long term, rehab)? @ -No Was there de-escalation of care discussed even if they declined? (Discuss DNR or withdrawal of care, Hospice)? @ -No What co-morbidities impacted this encounter? (DM, HTN, Smoking, COPD, CAD, Cancer, CVA, Hep., AIDS, mental health diagnosis, sleep apnea, morbid obesity)? @ -Kidney stones Was patient admitted / discharged? @ -Discharged. Lab work unremarkable. Urinalysis contains a large amount of blood but is negative for signs of infection. CT scan of the abdomen and pelvis demonstrates a 5 mm calculus in the left distal ureter with mild hydronephrosis. Symptoms well-controlled in the emergency department and the patient was comfortable with discharge home. Toradol, Treichlers, Zofran, and Flomax prescribed. Information for follow-up with urology provided. Patient discharged home in stable condition. Case discussed with ED attending Dr. Burris. Return precautions reviewed in depth, the patient is instructed to return to the emergency department with any new, worsening, or concerning symptoms. Patient verbalized understanding. Undiagnosed new problem with uncertain prognosis? @ -None Drug Therapy requiring intensive monitoring for toxicity (Heparin, Nitro, Insulin, Cardizem)? @ -None Were any procedures done? @ -None Diagnosis/symptom? @ -Left ureteral calculus, hydronephrosis Acute, or Chronic, or Acute on Chronic? @ -Acute Uncomplicated (without systemic symptoms) or Complicated (systemic symptoms)? @ -Uncomplicated Side effects of treatment? @ -None Exacerbation, Progression, or Severe Exacerbation] @ -Not applicable Poses a threat to life or bodily function? @ -No - Lab Data Result diagrams: 06/08/24 11:35 06/08/24 11:35 Lab Results 06/08/24 06/08/24 06/08/24 Range/Units 11:35 11:35 11:35 WBC 9.0 (3.8-10.6) k/uL RBC 5.31 (4.30-5.90) m/uL Hgb 15.6 (13.0-17.5) gm/dL Hct 46.0 (39.0-53.0) % MCV 86.6 (80.0-100.0) fL MCH 29.4 (25.0-35.0) pg MCHC 33.9 (31.0-37.0) g/dL RDW 12.6 (11.5-15.5) % Plt Count 259 (150-450) k/uL MPV 7.0 Neutrophils % 77 % Lymphocytes % 16 % Monocytes % 4 % Eosinophils % 1 % Basophils % 0 % Neutrophils # 7.0 (1.3-7.7) k/uL Lymphocytes # 1.4 (1.0-4.8) k/uL Monocytes # 0.4 (0-1.0) k/uL Eosinophils # 0.1 (0-0.7) k/uL Basophils # 0.0 (0-0.2) k/uL Sodium 138 (137-145) mmol/L Potassium 4.2 (3.5-5.1) mmol/L Chloride 106 (98-107) mmol/L Carbon Dioxide 26 (22-30) mmol/L Anion Gap 6 mmol/L BUN 17 (9-20) mg/dL Creatinine 0.97 (0.66-1.25) mg/dL Est GFR (CKD-EPI)AfAm >90 (>60 ml/min/1.73 sqM) Est GFR (CKD-EPI)NonAf >90 (>60 ml/min/1.73 sqM) Glucose 130 H (74-99) mg/dL Plasma Lactic Acid Tano (0.7-2.0) mmol/L Calcium 9.7 (8.4-10.2) mg/dL Total Bilirubin 0.6 (0.2-1.3) mg/dL AST 25 (17-59) U/L ALT 40 (4-49) U/L Alkaline Phosphatase 95 (38-126) U/L Total Protein 7.1 (6.3-8.2) g/dL Albumin 4.3 (3.5-5.0) g/dL Urine Color Yellow Urine Appearance Clear (Clear) Urine pH 7.0 (5.0-8.0) Ur Specific [place] 1.027 (1.001-1.035) Urine Protein 1+ H (Negative) Urine Glucose (UA) Negative (Negative) Urine Ketones Negative (Negative) Urine Blood Large H (Negative) Urine Nitrite Negative (Negative) Urine Bilirubin Negative (Negative) Urine Urobilinogen <2.0 (<2.0) mg/dL Ur Leukocyte Esterase Negative (Negative) Urine RBC >182 H (0-5) /hpf Urine WBC 2 (0-5) /hpf Urine Mucus Few H (None) /hpf 06/08/24 Range/Units 11:35 WBC (3.8-10.6) k/uL RBC (4.30-5.90) m/uL Hgb (13.0-17.5) gm/dL Hct (39.0-53.0) % MCV (80.0-100.0) fL MCH (25.0-35.0) pg MCHC (31.0-37.0) g/dL RDW (11.5-15.5) % Plt Count (150-450) k/uL MPV Neutrophils % % Lymphocytes % % Monocytes % % Eosinophils % % Basophils % % Neutrophils # (1.3-7.7) k/uL Lymphocytes # (1.0-4.8) k/uL Monocytes # (0-1.0) k/uL Eosinophils # (0-0.7) k/uL Basophils # (0-0.2) k/uL Sodium (137-145) mmol/L Potassium (3.5-5.1) mmol/L Chloride (98-107) mmol/L Carbon Dioxide (22-30) mmol/L Anion Gap mmol/L BUN (9-20) mg/dL Creatinine (0.66-1.25) mg/dL Est GFR (CKD-EPI)AfAm (>60 ml/min/1.73 sqM) Est GFR (CKD-EPI)NonAf (>60 ml/min/1.73 sqM) Glucose (74-99) mg/dL Plasma Lactic Acid Tano 2.0 (0.7-2.0) mmol/L Calcium (8.4-10.2) mg/dL Total Bilirubin (0.2-1.3) mg/dL AST (17-59) U/L ALT (4-49) U/L Alkaline Phosphatase (38-126) U/L Total Protein (6.3-8.2) g/dL Albumin (3.5-5.0) g/dL Urine Color Urine Appearance (Clear) Urine pH (5.0-8.0) Ur Specific [place] (1.001-1.035) Urine Protein (Negative) Urine Glucose (UA) (Negative) Urine Ketones (Negative) Urine Blood (Negative) Urine Nitrite (Negative) Urine Bilirubin (Negative) Urine Urobilinogen (<2.0) mg/dL Ur Leukocyte Esterase (Negative) Urine RBC (0-5) /hpf Urine WBC (0-5) /hpf Urine Mucus (None) /hpf - Radiology Data Radiology results: report reviewed, image reviewed Disposition Clinical Impression: Left ureteral calculus, Hydronephrosis Disposition: HOME SELF-CARE Instructions (If sedation given, give patient instructions): Renal Colic (ED), Hydronephrosis (ED), Ureteral Stones (ED) Additional Instructions: Return to the emergency department with any new, worsening, or concerning symptoms. Take the Flomax daily for the next 5 days. Take the Toradol with Tylenol as needed for pain relief. If you choose to take the Toradol, do not take any other anti-inflammatories such as ibuprofen, take one or the other. Take the Treichlers sparingly when your pain is the most severe. Take the Zofran up to every 8 hours as needed for nausea and vomiting. Follow-up with urology as listed below. Prescriptions: Tamsulosin [Flomax] 0.4 mg PO DAILY 5 Days #5 cap HYDROcodone/APAP 5-325MG [Treichlers 5-325] 1 tab PO Q6HR PRN 3 Days #12 tab PRN Reason: Pain Ketorolac [Toradol] 10 mg PO Q6HR PRN #15 tab PRN Reason: Pain Ondansetron Odt [Zofran Odt] 4 mg PO Q8HR PRN #15 tab PRN Reason: Nausea And Vomiting Is patient prescribed a controlled substance at d/c from ED?: Yes When asked, does pt state using other controlled substances?: No If prescribed controlled substance>3 days was MAPS reviewed?: Prescribed <3 Days Referrals: Viktor Beaulieu DO [Primary Care Provider] - 1-2 days Paul Abbasi MD [STAFF PHYSICIAN] - 1-2 days Time of Disposition: 13:14
[2024-06-08] MEDS: SODIUM CHLORIDE 0.9% 1,000 ML IV ONE (11:47)
[2024-06-08] MEDS: KETOROLAC 15 MG/ML 1 ML VIAL IVP STA (11:48)
[2024-06-08] MEDS: MORPHINE SULFATE 4 MG/ML SYRINGE IVP STA (11:49)
[2024-06-08] MEDS: ONDANSETRON 4 MG/2 ML VIAL IVP STA (11:49)
[2024-06-08 12:02] VITALS: RESP 20
[2024-06-08 12:12] LABS: Basophils % (A) 0 %; Eosinophils # (A) 0.1 k/uL (0-0.7); Eosinophils % (A) 1 %; HGB 15.6 gm/dL (13.0-17.5); Lymphocytes # (A) 1.4 k/uL (1.0-4.8); Lymphocytes % (A) 16 %; MCH 29.4 pg (25.0-35.0); MCHC 33.9 g/dL (31.0-37.0); MCV 86.6 fL (80.0-100.0); Monocytes # (A) 0.4 k/uL (0-1.0); Monocytes % (A) 4 %; Neutrophils % (A) 77 %; Platelet Count 259 k/uL (150-450); RBC 5.31 m/uL (4.30-5.90); RDW 12.6 % (11.5-15.5)
[2024-06-08 12:27] LABS: ALT 40 U/L (4-49); AST 25 U/L (17-59); African American GFR (CKD) >90 (>60 ml/min/1.73 sqM); Albumin 4.3 g/dL (3.5-5.0); Alkaline Phosphatase 95 U/L (38-126); Anion Gap 6 mmol/L; Blood Urea Nitrogen 17 mg/dL (9-20); Calcium 9.7 mg/dL (8.4-10.2); Carbon Dioxide 26 mmol/L (22-30); Chloride 106 mmol/L (98-107); Glucose 130 mg/dL (74-99); Non-African American GFR(CKD) >90 (>60 ml/min/1.73 sqM); Potassium 4.2 mmol/L (3.5-5.1); Sodium 138 mmol/L (137-145); Total Bilirubin 0.6 mg/dL (0.2-1.3); Total Protein 7.1 g/dL (6.3-8.2)
[2024-06-08 12:46] LABS: Appearance,Urine Clear (Clear); Bilirubin,Urine Negative (Negative); Blood,Urine Large (Negative); Color,Urine Yellow; Glucose,Urine (UA) Negative (Negative); Ketones,Urine Negative (Negative); Leukocyte Esterase,Urine Negative (Negative); Mucus,Urine Few /hpf; Nitrite,Urine Negative (Negative); Protein,Urine 1+ (Negative); RBC,Urine >182 /hpf (0-5); Specific Gravity,Urine 1.027 (1.001-1.035); Urobilinogen,Urine <2.0 mg/dL (<2.0); WBC,Urine 2 /hpf (0-5)
--- NOTE | 2024-06-08 13:06 | CT ---
EXAMINATION TYPE: CT abdomen pelvis wo con DATE OF EXAM: 06/08/2024 COMPARISON: Prior CT December 05, 2023 CLINICAL INDICATION: Male, 38 years old with history of Left flank pain, LT flank pain, hx renal ston es, TECHNIQUE: CT scan of the abdomen and pelvis is performed , patient injected with mL of ., (none if empty) Oral contrast used: without Oral Contrast (none if empty) CT DLP: 858 mGycm, Automated exposure control for dose reduction was used. FINDINGS: LUNG BASES: No significant abnormality is appreciated. LIVER/GB: No significant abnormality is appreciated. PANCREAS: No significant abnormality is seen. SPLEEN: Mild splenomegaly at 14.9 cm long axis axial image 52 is redemonstrated. ADRENALS: No significant abnormality is seen. KIDNEYS: No right-sided renal calculi or hydronephrosis.. There is 4 mm nonobstructing calculus midp ole of the left kidney coronal image 59. There is a 5 mm calculus in distal left ureter axial image 1 35 causing mild left-sided hydronephrosis. No intraluminal calculus in the bladder. BOWEL: Normal-appearing appendix from the cecum. No abnormal small or large bowel dilatation. PROSTATE/SEMINAL VESICLES: No gross abnormality seen. LYMPH NODES: No greater than 1cm abdominal or pelvic lymph nodes are appreciated. OSSEOUS STRUCTURES: Mild disc space narrowing at lumbosacral junction is redemonstrated. OTHER: No significant additional abnormality is seen. IMPRESSION: There is a 5 mm calculus in distal left ureter causing mild left-sided hydronephrosis. [facility], , 06/08/2024 1:04 PM
[2024-06-08 13:10] VITALS: BP 131/79; PULSE 62
== END 2024-06-08 13:24 | disposition home or self-care (01) ==
LOC: EC 11:21
DX: N13.2 Hydronephrosis with renal and ureteral calculous obstruction (principal); Z91.041 Radiographic dye allergy status; Z91.013 Allergy to seafood; Z87.891 Personal history of nicotine dependence
CPT/HCPCS: 36415; 80053; 83605; 85025; 81001; 74176; 99284; 96374; 96375 ×2; 96361 ×2; J2270; J2405; J1885